=== PATIENT | male | born 1995 | race Caucasian/White ===

== ENCOUNTER 2021-04-08 21:51 | Emergency (ER) | payer SELFPAY ==
[~2021-04-08] VITALS: Ht 175.3 cm; Wt 65.0 kg
[2021-04-08 23:03] VITALS: BP 119/72
[2021-04-08] MEDS ORDERED: bacitracin 15gm ointment TP ONE (23:15)
[2021-04-08] MEDS ORDERED: ondansetron 4mg rapidly disintigrating tab PO ONE (23:15)
[2021-04-08] MEDS ORDERED: amox tr/potassium clavulanate 875/125mg TAB PO ONE (23:15)
[2021-04-08] MEDS ORDERED: AMOX-419 PO (23:15)
[2021-04-08] MEDS ORDERED: TETanus/Pertussis (Acell)/Diphther VAC/PF (Tdap-Adult) 0.5ml syringe IMVAC ONE (23:15)
== END 2021-04-08 23:35 ==
LOC: ER 21:52
DX: S51.831A Puncture wound without foreign body of right forearm, initial encounter (principal); Z20.3 Contact with and (suspected) exposure to rabies; W54.0XXA Bitten by dog, initial encounter; Y93.89 Activity, other specified; Y92.89 Other specified places as the place of occurrence of the external cause; Y99.8 Other external cause status
CPT/HCPCS: 90471; 90715; 99284